=== PATIENT | female | born 1995 ===

== ENCOUNTER 2022-06-09 05:57 | Day surgery (SDC) | payer OTHER ==
[2022-06-09] MEDS ORDERED: PEPCID AC20 MG PO (08:34)
[2022-06-09] MEDS ORDERED: CARAFATE1 GM PO (08:34)
== END 2022-06-09 10:00 | disposition home or self-care (01) ==
LOC: AMB-ENDOS 05:57
PROVIDERS: ATTEND Surgery
DX: R10.13 Epigastric pain (principal); K29.60 Other gastritis without bleeding; K44.9 Diaphragmatic hernia without obstruction or gangrene; E66.09 Other obesity due to excess calories; Z20.822 Contact with and (suspected) exposure to COVID-19